=== PATIENT | male | born 1950 | race Caucasian/White ===

== ENCOUNTER → 2016-11-15 | Outpatient (REF) | payer MEDICARE, BC, OTHER | LOC: M SMT 13:16 | PROVIDERS: ATTEND Nurse Practitioner Women's Health | DX: Z12.5 Encounter for screening for malignant neoplasm of prostate (principal) | CPT/HCPCS: 36415; G0103 ==

== ENCOUNTER → 2017-07-18 | Outpatient (CLI) | payer MEDICARE, BC, OTHER ==
--- NOTE | 2017-07-26 20:21 | SLEEPHOME ---
DATE OF PROCEDURE: 07/18/2017 REFERRING PHYSICIAN: Bessie Pierre NP INTERPRETATION: Diagnostic home sleep testing was performed due to concern for the obstructive sleep apnea syndrome. For testing a NOX-T3 respiratory monitoring device was used. Continuous record was made of pulse, oxygen saturation, airflow, chest and abdominal strain and body position. 9 hours and 59 minutes of data were reviewed. Of these, 6 hours and 55 minutes were marked as time in bed. During the interval marked time in bed, there were 27 respiratory events identified of 10 seconds in duration or greater for a respiratory event index of 3.7. The events were primarily obstructive. Baseline pulse rate 55 beats per minute. Pulse rate ranged 41 to 85. Baseline saturation 94%. Lowest oxygen saturation appreciated was 91%. Testing was performed in both the supine and nonsupine positions. Frequency of respiratory events was significantly greater in the supine posture. IMPRESSION: Abnormal home sleep testing with repetitive respiratory events and oxygen desaturations to 91% with a respiratory event index of 3.9 is suggestive of the obstructive sleep apnea syndrome. RECOMMENDATION: Given the association of events with the supine posture, sleep position retraining for avoidance of supine posture should be considered. If sleep symptoms persist, referral for formal in laboratory diagnostic testing would be appropriate as home testing is known to underestimate the severity of disease.
== END ==
LOC: M SLEEP HO 09:17
PROVIDERS: ATTEND Nurse Practitioner Adult Health
DX: G47.33 Obstructive sleep apnea (adult) (pediatric) (principal)

== ENCOUNTER → 2017-11-17 | Outpatient (REF) | payer MEDICARE, BC, OTHER ==
[2017-11-17 20:26] LABS: PSA SCREENING 1.39 NG/ML (< 4.0)
== END ==
LOC: M SMT 19:01
DX: Z12.5 Encounter for screening for malignant neoplasm of prostate (principal)
CPT/HCPCS: G0103

== ENCOUNTER → 2018-11-21 | Outpatient (CLI) | payer MEDICARE, BC, OTHER | LOC: M SMT 08:08 | PROVIDERS: ATTEND Nurse Practitioner Women's Health | DX: Z12.5 Encounter for screening for malignant neoplasm of prostate (principal) | CPT/HCPCS: 36415; G0103 ==

== ENCOUNTER → 2019-06-12 | Outpatient (REF) | payer MEDICARE, OTHER ==
[2019-06-12 13:49] LABS: BASO # 0.1 10^3/uL (0.0-0.2); EOS # 0.2 10^3/uL (0.0-0.5); EOS % 3.3 % (0.0-3.0); HEMATOCRIT 43.2 % (42.0-52.0); LYMPH # 1.3 10^3/uL (1.5-5.0); LYMPH % 24.5 % (24.0-44.0); MEAN CORPUSCULAR HEMOGLOBIN 31.4 pg (27.0-33.0); MEAN CORPUSCULAR HGB CONC 32.4 g/dl (32.0-36.5); MEAN CORPUSCULAR VOLUME 96.9 fl (80.0-96.0); MONO # 0.8 10^3/uL (0.0-0.8); MONO % 15.1 % (0.0-5.0); NEUTROPHILS # 2.9 10^3/uL (1.5-8.5); NEUTROPHILS % 55.7 % (36.0-66.0); PLATELET COUNT, AUTOMATED 218 10^3/uL (150-450); RED BLOOD COUNT 4.46 10^6/uL (4.30-6.10); WHITE BLOOD COUNT 5.2 10^3/uL (4.0-10.0)
[2019-06-12 14:00] LABS: ALBUMIN 3.9 GM/DL (3.2-5.2); ALT/SGPT 33 U/L (12-78); BILIRUBIN,TOTAL 0.5 MG/DL (0.2-1.0); BLOOD UREA NITROGEN 19 MG/DL (7-18); CALCIUM LEVEL 8.7 MG/DL (8.8-10.2); CARBON DIOXIDE LEVEL 30 MEQ/L (21-32); CHLORIDE LEVEL 107 MEQ/L (98-107); CHOLESTEROL LEVEL 150 MG/DL (<200); CREATININE FOR GFR 1.06 MG/DL (0.70-1.30); FREE T4 0.91 NG/DL (0.76-1.46); GLOMERULAR FILTRATION RATE > 60.0 (>49); GLUCOSE, FASTING 95 MG/DL (70-100); HDL CHOLESTEROL 53 MG/DL (>40); LDL CHOLESTEROL 78 MG/DL (<100); NON-HDL-C 97 MG/DL; POTASSIUM SERUM 4.1 MEQ/L (3.5-5.1); SODIUM LEVEL 142 MEQ/L (136-145); TRIGLYCERIDES LEVEL 93 MG/DL (<150)
[2019-06-12 14:17] LABS: HEMOGLOBIN A1c 5.5 %
== END ==
LOC: M LABDRWAD 12:31
PROVIDERS: ATTEND Nurse Practitioner Adult Health
DX: E03.9 Hypothyroidism, unspecified (principal); E78.2 Mixed hyperlipidemia; E11.65 Type 2 diabetes mellitus with hyperglycemia

== ENCOUNTER → 2019-06-26 | Outpatient (REF) | payer MEDICARE, OTHER ==
[2019-06-26 13:19] LABS: APPEARANCE, URINE CLEAR (CLEAR); BACTERIA, URINE AUTO NEGATIVE (NEGATIVE); BILIRUBIN, URINE AUTO NEGATIVE (NEGATIVE); BLOOD, URINE BLOOD NEGATIVE (NEGATIVE); COLOR, URINE YELLOW (YELLOW); GLUCOSE, URINE (UA) AUTO NEGATIVE (NEGATIVE); KETONE, URINE AUTO NEGATIVE (NEGATIVE); LEUKOCYTE ESTERASE, URINE AUTO NEGATIVE (NEGATIVE); NITRITE, URINE AUTO NEGATIVE (NEGATIVE); PROTEIN, URINE AUTO NEGATIVE (NEGATIVE); RBC, URINE AUTO 2 /HPF (0-3); SPECIFIC GRAVITY URINE AUTO 1.009 (1.002-1.035); SQUAMOUS EPITHELIAL CELL UR AU 0 /HPF (0-6); UROBILINOGEN, URINE AUTO 0.2 mg/dL (0.0-2.0); WBC, URINE AUTO 1 /HPF (0-3)
== END ==
LOC: M SMT 13:07
PROVIDERS: ATTEND Nurse Practitioner Women's Health
DX: R10.9 Unspecified abdominal pain (principal)

== ENCOUNTER → 2019-06-26 | Outpatient (CLI) | payer MEDICARE, BC, OTHER ==
--- NOTE | 2019-06-26 12:55 | REP ---
CT ABDOMEN AND PELVIS WITHOUT CONTRAST: CT abdomen and pelvis performed without oral or IV contrast. Sagittal and coronal reconstruction images are performed. There is mild bibasilar fibroatelectatic change in the visualized lung bases. Calcified lymph node is seen in the visualized right hilum. Two hypodense nodules in the liver, one in the left lobe and one in the right lobe, are stable compared to the prior CT of the chest 06/09/2017 from [facility]. The gallbladder is grossly unremarkable. Spleen, adrenals, and pancreas are grossly unremarkable. No right renal calculus or hydronephrosis is seen. There are two punctate calcifications in the mid and lower left renal collecting system. There is mild left hydroureteronephrosis. This is caused by a 6 mm calculus in the left ureter at the level of the L4 vertebral body. No bladder calculus is seen. There is no abdominal aortic aneurysm. There is no adenopathy. There is no free air or free fluid. There is no bowel wall thickening. The appendix is normal. I see no pelvic mass. IMPRESSION: There is a 6 mm calculus in the left ureter at the level of the L4 vertebral body causing mild left hydroureteronephrosis. Two punctate calcifications are seen in the left pelvicalyceal region. Two stable benign appearing hypodense nodules in the liver with no change since prior CT of 06/09/2017. Electronically Signed by Tony Chavarria MD 06/27/2019 10:13 A
== END ==
LOC: M RAD 12:02
PROVIDERS: ATTEND Nurse Practitioner Women's Health
DX: N20.1 Calculus of ureter (principal); R10.9 Unspecified abdominal pain; Z87.442 Personal history of urinary calculi
CPT/HCPCS: 74176; 81001; 87086; G0463

== ENCOUNTER → 2019-07-03 | Outpatient (CLI) | payer MEDICARE, OTHER ==
--- NOTE | 2019-07-03 09:17 | REP ---
Supine abdomen single AP view: Comparison is the abdomen/pelvis CT dated 06/26/2019. There is a faintly visible calcification projected over the L4 left transverse process. This is similar to the comparison CT. There is a phlebolith inferiorly in the pelvis on the left, also identified on the comparison CT. There are no other calcifications. The bowel gas pattern is normal. There is degenerative disc disease throughout the lumbar spine. Impression: Faintly visible calcifications projected over the L4 left transverse process. Phlebolith in the pelvis on the left. Electronically Signed by Tony Hope MD 07/03/2019 09:09 A
== END ==
LOC: M SMT 08:34
PROVIDERS: ATTEND Nurse Practitioner Women's Health
DX: N13.2 Hydronephrosis with renal and ureteral calculous obstruction (principal); I87.8 Other specified disorders of veins; M51.36 Other intervertebral disc degeneration, lumbar region
CPT/HCPCS: 74018; G0463

== ENCOUNTER → 2019-07-23 | Outpatient (REF) | payer MEDICARE, OTHER ==
[~2019-07-23] MED LIST: ASPI81TA85 PO; ATOR1TAB21 PO; BIMA01SOL OU; CHOL100029 PO; DORZ2SOL5 OU; FLOM0.4C39 PO; GLUC1TAB58 PO; OXYC1TAB23 PO; VALS160T PO
== END ==
LOC: M LABDRWAD 16:23
PROVIDERS: ATTEND Nurse Practitioner Adult Health
DX: Z01.812 Encounter for preprocedural laboratory examination (principal); N13.2 Hydronephrosis with renal and ureteral calculous obstruction

== ENCOUNTER 2019-07-31 05:45 | Day surgery (SDC) | payer MEDICARE, BC, OTHER ==
[~2019-07-31] VITALS: Ht 177.8 cm; Wt 91.6 kg
[2019-07-31] MEDS ORDERED: LIDOCAINE 1% MDV 20ML VIAL SQ PRN (06:00)
[2019-07-31] MEDS ORDERED: LR 1,000 ML IV ONE (06:00)
[2019-07-31] MEDS ORDERED: ceFAZolin SOD 2 GM in IV 1 EA IV ONE (06:00)
[2019-07-31] MEDS ORDERED: CONRAY-60 60% 50ML VIAL (Q9961) As Ordered ONE (06:55)
[2019-07-31] MEDS ORDERED: LIDOCAINE 2% INJ 100 MG/5 ML SDV (FOR ANES.) As Ordered ONE (07:14)
[2019-07-31] MEDS ORDERED: PROPOFOL 200 MG/20 ML VIAL As Ordered ONE (07:14)
[2019-07-31] MEDS ORDERED: dexameTHASONE 4 MG/ML 1ML VIAL (J1100) As Ordered ONE (07:15)
[2019-07-31] MEDS ORDERED: fentaNYL 100 MCG/2 ML INJECTION (J3010) As Ordered ONE ×2 (07:15→09:46)
[2019-07-31] MEDS ORDERED: ONDANSETRON 4MG/2ML VIAL (J2405) As Ordered ONE ×2 (07:15→10:48)
[2019-07-31] MEDS ORDERED: MIDAZOLAM INJ 2 MG/2 ML VIAL (J2250) As Ordered ONE (07:15)
[2019-07-31] MEDS ORDERED: ACETAMINOPHEN 1000MG 100ML IV BTL (OFIRMEV) (J0131 PER 10MG) As Ordered ONE (09:08)
[2019-07-31] MEDS ORDERED: OXYB5TAB2 PO (10:54)
[2019-07-31] MEDS ORDERED: BACT800T5 PO (10:54)
[2019-07-31] MEDS ORDERED: LR 1,000 ML IV SCH (11:00)
[2019-07-31] MEDS ORDERED: ONDANSETRON 4MG/2ML VIAL (J2405) IV PRN (11:00)
[2019-07-31] MEDS: fentaNYL 100 MCG/2 ML INJECTION (J3010) IV PRN ×4 (11:08→11:30)
[2019-07-31] MEDS: oxyCODONE 5MG TAB PO PRN ×2 (11:10→12:56)
[2019-07-31] MEDS ORDERED: oxyCODONE 5MG TAB As Ordered ONE ×2 (11:10→12:56)
--- NOTE | 2019-07-31 11:28 | RO ---
DATE OF PROCEDURE: 07/31/2019 PREPROCEDURE DIAGNOSIS: Left passed ureteral stone. POSTPROCEDURE DIAGNOSIS: Left passed ureteral stone. PROCEDURE: Left ureteroscopic stone extraction with laser lithotripsy of stones and stent placement. SURGEON: Dr. Wisam Pollock BAG MACHINE SET UP OPERATOR: ANESTHESIA: General. INDICATION: This pleasant 69-year-old man has been trying unsuccessfully to pass the stone for the last several weeks. He has had only mild pain. The stone was located at L4 and measured about 4-5 mm and has failed to progress. DESCRIPTION OF PROCEDURE: After obtaining informed consent from the patient, he was taken to the operating room where after sufficient anesthetic, he was prepped and draped in the usual manner. A 22-Mauritian diagnostic cystoscope was advanced to the bladder and the bladder inspected. No mucosal lesions seen. A wire was negotiated past the stone to the kidney under fluoroscopic control. Ureteral orifices were in orthotopic location draining clear urine. A retrograde ureteral pyelogram was performed by instilling iodinated contrast and the left side of this demonstrated a filling defect in that area of L4 consistent with the previously noted faint urinary stone. A hydrophilic Glidewire was advanced passed the stone of the kidney under fluoroscopic control. The fluoroscopy ureteroscope was advanced without requirement of dilation at the ureteral orifice to the stone. We then used the 200 micron holmium laser to fragment the stone using both high and low power settings. A portion of the stone moving back to the kidney where it was trapped in the zak and thoroughly fragmented. Using a 1.9 Mauritian basket, we were able to grasp a collection of fragments and to remove them. This included all significant remaining stone after inspection of all calices. There was noted to be moderate induration at the point of the stone impaction and for this reason we felt that an indwelling stent was indicated. At this time we re-passed the safety Glidewire and positioned a 5-[place]itian stent in this area using a [place] type stent. T eh string was left attached, the bladder emptied, and the patient to recovery in satisfactory condition. Fluoroscopic imaging confirmed stent placement. DISPOSITION: Dismissed home on diet as tolerated. Activity light. Medication: Septra DS one by mouth twice a day, oxybutynin ER 5 mg daily. The patient has OxyContin at home for as needed pain control. Followup to be in 10-14 days for cystoscopy and stent removal in t office. MTDD
[2019-07-31] MEDS: MORPHINE 10 MG/ML 1ML VIAL (J2270) IV PRN ×3 (11:36→12:32)
[2019-07-31] MEDS ORDERED: oxyBUTYnin 5 MG TAB PO ONE (12:00)
[2019-07-31] MEDS ORDERED: KETOROLAC 30 MG/ML VIAL (J1885) As Ordered ONE (13:10)
[2019-07-31] MEDS ORDERED: KETOROLAC 30 MG/ML VIAL (J1885) IV ONE (13:45)
[2019-07-31 15:00] VITALS: BP 149/67
--- NOTE | 2019-07-31 15:28 | REP ---
C-ARM VIEWS DURING LEFT URETERAL STENT PLACEMENT WITH RETROGRADE PYELOGRAM: Two C-arm views are performed. The first image shows contrast within a normal-appearing left ureter with no stricture or filling defect identified. The left renal pelvis is not dilated and demonstrates no filling defect. The calices are not well opacified. A left ureteral stent is placed. The proximal end is coiled in the region of the left pelvicaliceal system. The distal end is coiled in the region of the urinary bladder. 26 seconds fluoroscopy time utilized. Electronically Signed by Tony Chavarria MD 08/01/2019 12:26 P
== END 2019-07-31 15:40 | disposition home or self-care (01) ==
LOC: M SDC 05:45
PROVIDERS: ATTEND Urology
DX: N20.1 Calculus of ureter (principal); I10 Essential (primary) hypertension; E78.00 Pure hypercholesterolemia, unspecified; E55.9 Vitamin D deficiency, unspecified; I83.93 Asymptomatic varicose veins of bilateral lower extremities; H40.9 Unspecified glaucoma; R94.5 Abnormal results of liver function studies; R06.83 Snoring; Z79.899 Other long term (current) drug therapy; Z79.82 Long term (current) use of aspirin
CPT/HCPCS: 52356; 74420; 82360; 88300; C1769; C2617; J0131; J0690; J1100; J1885; J2250; J2270; J2405; J3010; Q9961

== ENCOUNTER → 2019-08-27 | Outpatient (REF) | payer MEDICARE, OTHER ==
[~2019-08-27] MED LIST changes: +BACT800T5 PO; +OXYB5TAB2 PO
== END ==
LOC: M LAB REF 10:11
PROVIDERS: ATTEND Nurse Practitioner Adult Health
DX: R10.10 Upper abdominal pain, unspecified (principal); R11.0 Nausea; R63.4 Abnormal weight loss

== ENCOUNTER → 2019-11-28 | Outpatient (CLI) | payer MEDICARE, OTHER ==
[~2019-11-28] MED LIST changes: +OXYB-54 PO; -OXYB5TAB2 PO; -VALS160T PO; +VALS160T2 PO
== END ==
LOC: M PLALAB 08:59
PROVIDERS: ATTEND Nurse Practitioner Women's Health
DX: Z12.5 Encounter for screening for malignant neoplasm of prostate (principal)
CPT/HCPCS: 36415; G0103

== ENCOUNTER → 2020-11-24 | Outpatient (REF) | payer MEDICARE, OTHER ==
[~2020-11-24] MED LIST changes: -ASPI81TA85 PO; +ASPI81TA86 PO
== END ==
LOC: M SFHCADAM 10:21
PROVIDERS: ATTEND Nurse Practitioner Women's Health
DX: Z12.5 Encounter for screening for malignant neoplasm of prostate (principal)

== ENCOUNTER 2021-02-09 10:47 | Emergency (ER) | payer MEDICARE, OTHER ==
[~2021-02-09] VITALS: Ht 177.8 cm; Wt 95.9 kg
[2021-02-09 12:17] LABS: BASO # 0.1 10^3/uL (0.0-0.2); BASO % 0.5 % (0.0-1.0); EOS # 0.1 10^3/uL (0.0-0.5); EOS % 0.9 % (0.0-3.0); HEMATOCRIT 39.3 % (42.0-52.0); LYMPH # 1.1 10^3/uL (1.5-5.0); LYMPH % 10.5 % (24.0-44.0); MEAN CORPUSCULAR HEMOGLOBIN 31.2 pg (27.0-33.0); MEAN CORPUSCULAR HGB CONC 33.1 g/dl (32.0-36.5); MEAN CORPUSCULAR VOLUME 94.2 fl (80.0-96.0); MONO # 1.1 10^3/uL (0.0-0.8); MONO % 10.3 % (2.0-8.0); NEUTROPHILS % 77.5 % (36.0-66.0); PLATELET COUNT, AUTOMATED 235 10^3/uL (150-450); RED BLOOD COUNT 4.17 10^6/uL (4.30-6.10); WHITE BLOOD COUNT 10.3 10^3/uL (4.0-10.0)
--- NOTE | 2021-02-09 12:25 | REP ---
INDICATION: severe swelling, limited rom, no known injury COMPARISON: None. TECHNIQUE: Four views left wrist. FINDINGS: There is no evidence of acute fracture, dislocation, or intrinsic bone disease.The joint spaces are unremarkable. IMPRESSION: Negative left wrist series. <Electronically signed by Tony Chavarria > 02/09/21 0021
--- NOTE | 2021-02-09 12:26 | REP ---
INDICATION: severe swelling, limited rom, no known injury COMPARISON: None. TECHNIQUE: Four views left hand. FINDINGS: There is no evidence of acute fracture, dislocation, or intrinsic bone disease.Joint spaces are unremarkable. IMPRESSION: Negative left hand series. <Electronically signed by Tony Chavarria > 02/09/21 [id number]
[2021-02-09 12:28] LABS: INR 1.08; PARTIAL THROMBOPLASTIN TIME 27.3 SECONDS (24.2-38.5); PROTHROMBIN TIME 14.2 SECONDS (12.5-14.3)
[2021-02-09] MEDS ORDERED: ceFAZolin SOD 2 GM in IV 1 EA IV ONE (12:30)
[2021-02-09 12:39] LABS: ALBUMIN 3.7 GM/DL (3.2-5.2); BILIRUBIN,DIRECT 0.2 MG/DL (0.0-0.2); BILIRUBIN,TOTAL 0.5 MG/DL (0.2-1.0); C REACTIVE PROTEIN QUANTITATIV 8.9 MG/DL (0.00-0.30); CALCIUM LEVEL 9.6 MG/DL (8.8-10.2); CREATININE FOR GFR 1.54 MG/DL (0.70-1.30); GLOMERULAR FILTRATION RATE 47.9 (>49); POTASSIUM SERUM 3.8 MEQ/L (3.5-5.1); TOTAL PROTEIN 7.7 GM/DL (6.4-8.2)
[2021-02-09 12:51] LABS: ERYTHROCYTE SEDIMENTATION RATE 54 mm/hr (0-20)
[2021-02-09] MEDS ORDERED: NS 500 ML IV ONE (13:00)
[2021-02-09] MEDS ORDERED: MORPHINE 2 MG/ML 1ML VIAL (J2270) IV ONE (13:00)
[2021-02-09] MEDS ORDERED: ONDANSETRON 4MG/2ML VIAL IV ONE (13:00)
--- NOTE | 2021-02-09 13:07 | REP ---
INDICATION: swelling, numbness tingling COMPARISON: None. TECHNIQUE: Real time compression and duplex Doppler evaluation of the Left upper extremity deep venous system is performed. FINDINGS: The Left subclavian, jugular, axillary, brachial, basilic and cephalic veins are fully compressible where accessible with transducer pressure, and demonstrate no intraluminal thrombus and normal venous waveforms. There is no evidence of deep venous thrombosis. IMPRESSION: No evidence of deep venous thrombosis of the Left upper extremity deep vein system. <Electronically signed by Tony Chavarria > 02/09/21 [id number]
[2021-02-09 13:23] VITALS: BP 172/80
[2021-02-09] MEDS ORDERED: VALSARTAN 80 MG TAB (DIOVAN) PO ONE (13:25)
[2021-02-09] MEDS ORDERED: hydroCHLOROthiazide 12.5 MG CAPSULE PO ONE (13:25)
[2021-02-09 14:09] VITALS: BP 178/82
[2021-02-09] MEDS ORDERED: HYDR-3713 PO (14:18)
== END 2021-02-09 14:20 | disposition home or self-care (01) ==
LOC: M ED 10:47
DX: L03.114 Cellulitis of left upper limb (principal); N17.9 Acute kidney failure, unspecified; I10 Essential (primary) hypertension; E78.5 Hyperlipidemia, unspecified; G56.00 Carpal tunnel syndrome, unspecified upper limb; Z79.82 Long term (current) use of aspirin; Z79.899 Other long term (current) drug therapy
CPT/HCPCS: 73110; 73130; 80048; 80076; 83605; 85025; 85610; 85652; 85730; 86140; 87040; 93971; 99284; J0690; J2270; J2405

== ENCOUNTER → 2021-07-03 | Outpatient (CLI) | payer MEDICARE, BC, OTHER ==
[~2021-07-03] MED LIST changes: +HYDR-3713 PO
--- NOTE | 2021-07-03 13:31 | REP ---
INDICATION: MASS OF LT ARM, LT ANKLE SWELLING PT NEEDS XRAY AFTER US. COMPARISON: None. TECHNIQUE: Real-time sonographic evaluation of left antecubital fossa soft tissues performed at the site of a palpable abnormality. FINDINGS: No cystic or solid mass is seen. No fluid collection is seen. IMPRESSION: No cystic or solid mass, and no fluid collection, seen in the left antecubital soft tissues. <Electronically signed by Tony Chavarria > 07/03/21 [id number]
--- NOTE | 2021-07-03 13:35 | REP ---
INDICATION: LT ANKLE MASS X 2. COMPARISON: None. TECHNIQUE: Real-time sonographic evaluation of left ankle and foot performed in the region of the 2 palpable lumps. FINDINGS: At the site of each palpable abnormality in the region of the left ankle and foot, a complex cystic and solid structure seen. These likely communicate. Maximum length is approximately 9.2 cm and approximate maximum transverse diameter is 1.6 cm. IMPRESSION: Complex cystic and solid structure in the region of the 2 palpable lumps in the left ankle and foot. These appear to communicate. This could represent a complex tenosynovitis or ganglion cyst. Cystic neoplasm is not excluded. Further evaluation may be made with MRI with and without contrast. <Electronically signed by Tony Chavarria > 07/03/21 [id number]
--- NOTE | 2021-07-03 13:51 | REP ---
INDICATION: MASS OF LT ARM, LT ANKLE SWELLING PT HAS US FIRST. COMPARISON: None. TECHNIQUE: AP and lateral views FINDINGS: AP and lateral view show no evidence of an acute osseous abnormality. IMPRESSION: No acute osseous abnormalities identified on this limited AP and lateral view exam. If a soft tissue mass is of clinical concern then pre and post gadolinium enhanced MRI is recommended. <Electronically signed by Jorge Barragan > 07/03/21 [id number]
== END ==
LOC: M RAD 12:11
PROVIDERS: ATTEND Nurse Practitioner Family
DX: R22.42 Localized swelling, mass and lump, left lower limb (principal); R22.32 Localized swelling, mass and lump, left upper limb

== ENCOUNTER → 2021-08-10 | Outpatient (CLI) | payer MEDICARE, BC, OTHER ==
--- NOTE | 2021-08-10 10:48 | REP ---
INDICATION: ATHERO RENAL ARTERY, CKD 3B. COMPARISON: CT with 08/28/2019, CT without 06/26/2019 TECHNIQUE: Standard renal sonography with arterial Doppler. FINDINGS: Right kidney: It measures 10.5 x 6.5 x 5.6 cm. Its cortical echogenicity is the upper range of normal and there is some mild sinus lipomatosis with increased sinus fat there is no hydronephrosis. There are 2 small cystic areas in the lower pole at 5 and 4 mm. The left kidney is 9.7 x 4 x 4.2 cm with hyperechoic cortical echogenicity. There is moderate hydronephrosis. Cortex appears thinned since the previous study. The bladder is only minimally distended. The prostate seen measures 4.8 x 5.1 x 3.8 cm giving calculated prostate volume 49 cc. Right renal Doppler: Kidney length 10.5 cm. Peak renal artery velocity 97 cm/S Peak aortic velocity 84 cm/S Renal aortic ratio 1.15 Resistive index: Upper 0.76, mid 0.78, lower 0.75 Acceleration time: Upper 0.034, mid 0.044, lower 0.038 sec Left renal Doppler: Kidney length 9.7 cm. Left renal artery velocity: No flow identified. IMPRESSION: 1. Interval left atrophy has developed since CTs in 2019 and no Doppler tracing or color flow seen in the left renal artery. This is suspicious for poor to no function on the left. 2. There is no direct or indirect evidence for any significant renal artery stenosis on the right. 3. Consideration for nuclear renal scan is warranted. <Electronically signed by Marc Isaac > 08/10/21 [id number]
== END ==
LOC: M RAD 07:22
PROVIDERS: ATTEND Internal Medicine Nephrology
DX: N18.32 Chronic kidney disease, stage 3b (principal); I70.1 Atherosclerosis of renal artery

== ENCOUNTER → 2021-08-20 | Outpatient (CLI) | payer MEDICARE, BC, OTHER ==
--- NOTE | 2021-08-20 14:57 | REP ---
INDICATION: CKD 3B. COMPARISON: Previous renal ultrasound obtained 08/10/2021 showed left renal atrophy and no Doppler evidence of left renal arterial blood flow. TECHNIQUE/RADIOTRACER AND DOSE: After the intravenous administration of 8.8 mCi of technetium 99 M Mag 3 a renal flow in scan was obtained. FINDINGS: The flow portion of the examination shows prompt visualization of the right kidney and an absence of left renal visualization. The dynamic renal scintiscan shows good visual washout characteristics of the right kidney and an absence of activity from the left kidney. Pre and postvoid scintigraphy shows decreased activity in the right kidney on the postvoid image and there is no activity coming from the left kidney. Functional renogram curves show the time to peak activity for the right kidney 2 minutes and a T1/2 of 10 minutes. 100% of the counts are coming from the right kidney. There is no functional renogram curve for the left kidney. IMPRESSION: 1. The right kidney is functioning normally. 2. There is no evidence of left renal function. <Electronically signed by Jorge Barragan > 08/20/21 [id number]
== END ==
LOC: M RAD 12:41
PROVIDERS: ATTEND Internal Medicine Nephrology
DX: N18.30 Chronic kidney disease, stage 3 unspecified (principal)
CPT/HCPCS: 78707; A9562

== ENCOUNTER → 2021-11-27 | Outpatient (CLI) | payer MEDICARE, BC, OTHER | LOC: M PLALAB 10:43 | PROVIDERS: ATTEND Nurse Practitioner Women's Health | DX: Z12.5 Encounter for screening for malignant neoplasm of prostate (principal) | CPT/HCPCS: 36415; G0103 ==

== ENCOUNTER → 2022-03-09 | Outpatient (CLI) | payer MEDICARE, BC, OTHER ==
[~2022-03-09] MED LIST changes: +ASPI81TA26 PO; +CYCL5TAB PO; +D3 H10002 PO; +POTA10808 PO; +PRED20TA PO; +VALS160T3 PO
== END ==
LOC: M WUC 13:05
DX: R07.9 Chest pain, unspecified (principal); M25.512 Pain in left shoulder; R91.8 Other nonspecific abnormal finding of lung field; M19.012 Primary osteoarthritis, left shoulder

== ENCOUNTER → 2022-03-22 | Outpatient (CLI) | payer MEDICARE, BC, OTHER | LOC: M LABSMTC 09:06 | PROVIDERS: ATTEND Anesthesiology | DX: Z01.812 Encounter for preprocedural laboratory examination (principal); Z20.822 Contact with and (suspected) exposure to COVID-19 ==

== ENCOUNTER 2022-03-25 09:22 | Day surgery (SDC) | payer MEDICARE, BC, OTHER ==
[~2022-03-25] VITALS: Ht 177.8 cm; Wt 91.5 kg
[~2022-03-25 09:22] MED LIST changes: +NS 1,000 ML IV ONE
[2022-03-25] MEDS ORDERED: propofoL 200 MG/20 ML VIAL As Ordered ONE (09:24)
[2022-03-25] MEDS ORDERED: LIDOCAINE 2% 100MG/5ML SDV (FOR ANES.) As Ordered ONE (09:24)
[2022-03-25 11:04] VITALS: BP 118/72
== END 2022-03-25 11:16 | disposition home or self-care (01) ==
LOC: M OPP 09:22
PROVIDERS: ATTEND Surgery
DX: Z12.11 Encounter for screening for malignant neoplasm of colon (principal); K63.5 Polyp of colon; I10 Essential (primary) hypertension; E11.9 Type 2 diabetes mellitus without complications; Z79.02 Long term (current) use of antithrombotics/antiplatelets; Z79.52 Long term (current) use of systemic steroids; Z79.82 Long term (current) use of aspirin; Z79.899 Other long term (current) drug therapy; Z87.442 Personal history of urinary calculi

== ENCOUNTER → 2022-11-29 | Outpatient (CLI) | payer MEDICARE, BC, OTHER ==
[~2022-11-29] MED LIST changes: -NS 1,000 ML IV ONE
== END ==
LOC: M PLALAB 09:14
PROVIDERS: ATTEND Nurse Practitioner Women's Health
DX: Z12.5 Encounter for screening for malignant neoplasm of prostate (principal)
CPT/HCPCS: 36415; G0103

== ENCOUNTER 2023-03-22 03:34 | Emergency (ER) | payer MEDICARE, BC, OTHER ==
[~2023-03-22] VITALS: Ht 177.8 cm; Wt 99.1 kg
[2023-03-22] MEDS ORDERED: traMADol 50 MG TAB PO ONE (10:40)
[2023-03-22] MEDS ORDERED: ACETAMINOPHEN 325 MG TAB PO ONE (10:40)
[2023-03-22 11:49] VITALS: BP 166/84; TEMP 98.3; O2SAT 96
[2023-03-22] MEDS ORDERED: TRAM50TA2 PO (11:50)
[2023-03-22] MEDS ORDERED: METH-1164 PO (11:50)
== END 2023-03-22 11:58 | disposition home or self-care (01) ==
LOC: M ED 03:34
DX: M51.36 Other intervertebral disc degeneration, lumbar region (principal); M43.6 Torticollis; I10 Essential (primary) hypertension; Z79.82 Long term (current) use of aspirin; Z79.899 Other long term (current) drug therapy

== ENCOUNTER → 2023-12-02 | Outpatient (CLI) | payer MEDICARE, BC, OTHER ==
[~2023-12-02] MED LIST changes: +METH-1164 PO; +TRAM50TA2 PO
== END ==
LOC: M PLALAB 09:21
PROVIDERS: ATTEND Nurse Practitioner Women's Health
DX: Z12.5 Encounter for screening for malignant neoplasm of prostate (principal)
CPT/HCPCS: 36415; G0103

== ENCOUNTER → 2024-11-29 | Outpatient (REF) | payer MEDICARE, BC ==
[~2024-11-29] MED LIST changes: -CYCL5TAB PO; +CYCL5TAB4 PO; -POTA10808 PO; +POTA10809 PO
== END ==
LOC: M SFHCADAM 07:20
PROVIDERS: ATTEND Urology
DX: Z12.5 Encounter for screening for malignant neoplasm of prostate (principal)

== ENCOUNTER → 2025-02-05 | Outpatient (CLI) | payer MEDICARE, BC ==
[~2025-02-05] MED LIST changes: -FLOM0.4C39 PO; +TAMS-18 PO
[2025-02-05 13:32] LABS: HEMATOCRIT 42.2 % (42.0-52.0); MEAN CORPUSCULAR HEMOGLOBIN 31.5 pg (27.0-33.0); MEAN CORPUSCULAR HGB CONC 33.2 g/dl (32.0-36.5); PLATELET COUNT, AUTOMATED 231 10^3/uL (150-450); RED BLOOD COUNT 4.44 10^6/uL (4.30-6.10); WHITE BLOOD COUNT 6.6 10^3/uL (4.0-10.0)
[2025-02-05 13:37] LABS: ERYTHROCYTE SEDIMENTATION RATE 27 mm/hr (0-20)
[2025-02-05 13:47] LABS: HEMOGLOBIN A1c 5.4 % (4.0-6.0)
[2025-02-05 14:22] LABS: C REACTIVE PROTEIN QUANTITATIV < 0.50 MG/DL (<1.0)
[2025-02-05 14:24] LABS: ALBUMIN 3.9 G/DL (3.2-5.2); ALKALINE PHOSPHATASE 75 U/L (40-129); ALT/SGPT 18 U/L (7.0-40); AST/SGOT 23 U/L (<34); BILIRUBIN,TOTAL 0.4 MG/DL (0.3-1.2); BLOOD UREA NITROGEN 24 MG/DL (9-23); CALCIUM LEVEL 9.7 MG/DL (8.3-10.6); CARBON DIOXIDE LEVEL 28 MMOL/L (20-31); CHLORIDE LEVEL 106 MMOL/L (98-107); CHOLESTEROL LEVEL 139 MG/DL (<200); CHOLESTEROL RISK RATIO 2.87 (<5); GLOMERULAR FILTRATION RATE 53.1 (>42); GLUCOSE, FASTING 105 MG/DL (74-106); HDL CHOLESTEROL 48.3 MG/DL (>40); IRON (FE) 58 UG/DL (65-175); LDL CHOLESTEROL 78.5 MG/DL (<100); MAGNESIUM LEVEL 1.8 MG/DL (1.8-2.4); NON-HDL-C 90.7 MG/DL; POTASSIUM SERUM 4.1 MMOL/L (3.5-5.1); SODIUM LEVEL 144 MMOL/L (136-145); TOTAL PROTEIN 7.2 G/DL (5.7-8.2); TRIGLYCERIDES LEVEL 61 MG/DL (<150)
[2025-02-05 14:27] LABS: FREE T4 1.14 NG/DL (0.89-1.76)
[2025-02-05 14:28] LABS: FERRITIN 69.4 NG/ML (10.5-307.3); TOTAL 25(OH) VITAMIN D 42.2 NG/ML (20.0-100.0)
== END ==
LOC: M WUC 09:27
PROVIDERS: ATTEND Registered Nurse
DX: I12.9 Hypertensive chronic kidney disease with stage 1 through stage 4 chronic kidney disease, or unspecified chronic kidney disease (principal); E78.2 Mixed hyperlipidemia; R73.03 Prediabetes; E55.9 Vitamin D deficiency, unspecified; R42 Dizziness and giddiness; R07.89 Other chest pain; D50.9 Iron deficiency anemia, unspecified

== ENCOUNTER → 2025-02-21 | Outpatient (CLI) | payer MEDICARE, BC ==
[~2025-02-21] MED LIST changes: +ISOVUE-370 76% 100ML VIAL As Ordered ONE
== END ==
LOC: M RAD 07:56
PROVIDERS: ATTEND Registered Nurse
DX: R42 Dizziness and giddiness (principal)
CPT/HCPCS: 70496; 70498; Q9967

== ENCOUNTER → 2025-02-26 | Outpatient (CLI) | payer MEDICARE, BC ==
[~2025-02-26] MED LIST changes: -ISOVUE-370 76% 100ML VIAL As Ordered ONE
== END ==
LOC: M EKG 09:29
PROVIDERS: ATTEND Internal Medicine Cardiovascular Disease
DX: R00.0 Tachycardia, unspecified (principal); R42 Dizziness and giddiness

== ENCOUNTER → 2025-02-26 | Outpatient (CLI) | payer MEDICARE, BC ==
[2025-02-27 13:57] LABS: PSA FREE 1.1 ng/mL; PSA TOTAL 5.8 ng/mL (< OR = 4.0)
== END ==
LOC: M WUC 10:11
PROVIDERS: ATTEND Urology
DX: R97.20 Elevated prostate specific antigen [PSA] (principal)

== ENCOUNTER → 2025-02-28 | Outpatient (CLI) | payer MEDICARE, BC | LOC: M CARPUL 10:36 | PROVIDERS: ATTEND Internal Medicine Cardiovascular Disease | DX: R07.9 Chest pain, unspecified (principal); R06.02 Shortness of breath; R94.31 Abnormal electrocardiogram [ECG] [EKG] ==

== ENCOUNTER → 2025-05-03 | Outpatient (CLI) | payer MEDICARE, BC | LOC: M SLEEP HO 04-22 11:01 | PROVIDERS: ATTEND Internal Medicine Cardiovascular Disease | DX: G47.33 Obstructive sleep apnea (adult) (pediatric) (principal) ==

== ENCOUNTER → 2025-05-23 | Outpatient (CLI) | payer MEDICARE, BC ==
[2025-05-23 12:24] LABS: PLATELET COUNT, AUTOMATED 217 10^3/uL (150-450)
[2025-05-23 12:30] LABS: CALCIUM LEVEL 9.1 MG/DL (8.3-10.6); CARBON DIOXIDE LEVEL 31.0 MMOL/L (20-31); CHLORIDE LEVEL 104.0 MMOL/L (98-107); CREATININE FOR GFR 1.41 MG/DL (0.70-1.30); GLOMERULAR FILTRATION RATE 52.6 (>42); POTASSIUM SERUM 4.4 MMOL/L (3.5-5.1); SODIUM LEVEL 144.0 MMOL/L (136-145)
[2025-05-23 12:39] LABS: INR 0.93
== END ==
LOC: M WUC 08:14
PROVIDERS: ATTEND Urology
DX: Z01.818 Encounter for other preprocedural examination (principal); C61 Malignant neoplasm of prostate

== ENCOUNTER → 2025-06-04 | Outpatient (REF) | payer MEDICARE, BC ==
[~2025-06-04] MED LIST changes: +AMLO1TAB24 PO; +CIPR-249 PO; +COLA100C5 PO; +FERR325T3 PO; +MED REC COMMENT; +PERCOCET PO; +VALS320T3 PO
== END ==
LOC: M LABWUC 11:57
PROVIDERS: ATTEND Urology
DX: Z01.818 Encounter for other preprocedural examination (principal); C61 Malignant neoplasm of prostate; N39.0 Urinary tract infection, site not specified

== ENCOUNTER 2025-06-12 10:55 | Day surgery (SDC) | payer MEDICARE, BC ==
[2025-06-12] VITALS (7 sets, daily range): BP systolic 130–141; BP diastolic 67–73; TEMP 97.2–97.6; O2SAT 95–98
[~2025-06-12] VITALS: Ht 177.8 cm; Wt 97.0 kg
[2025-06-12] MEDS: LR 1,000 ML IV SCH ×2 (10:50→16:35)
[~2025-06-12 10:55] MED LIST changes: -CIPR-249 PO; -COLA100C5 PO; +LIDOCAINE 2% 100 MG/5 ML SDV (FOR ANES.) As Ordered ONE; -MED REC COMMENT; +ONDANSETRON 4MG 2ML VIAL As Ordered ONE; -PERCOCET PO; +ROCURONIUM BROMIDE 50MG/5ML VIAL As Ordered ONE; -VALS320T3 PO; +dexAMETHasone 4 MG/ML 1 ML VIAL As Ordered ONE
[2025-06-12] MEDS ORDERED: MIDAZOLAM INJ 2 MG/2 ML VIAL As Ordered ONE (11:00)
[2025-06-12] MEDS ORDERED: SUGAMMADEX SODIUM 200 MG/2 ML VIAL As Ordered ONE (11:35)
[2025-06-12] MEDS ORDERED: HEPARIN SOD 5000 UNITS/ML 1 ML VIAL/SYRINGE As Ordered ONE (12:06)
[2025-06-12] MEDS: ceFAZolin SOD 2 GM IV ONCE IV ONE ×2 (12:10→19:32)
[2025-06-12] MEDS: HEPARIN SOD 5000 UNITS/ML 1 ML VIAL/SYRINGE SQ ONE (12:10)
[2025-06-12] MEDS ORDERED: ACETAMINOPHEN 1000MG/100ML IV BAG As Ordered ONE (12:37)
[2025-06-12] MEDS ORDERED: HYDROmorphone HCL 2 MG/ML 1 ML VIAL As Ordered ONE (12:47)
[2025-06-12] MEDS ORDERED: ACETAMINOPHEN 325 MG TAB PO PRN (15:00)
[2025-06-12] MEDS ORDERED: dexmedeTOMIDine (4 MCG/ML) 200 MCG/50 ML BTL As Ordered ONE (16:13)
[2025-06-12] MEDS: LIDOCAINE 1% SDV 30 ML VIAL As Ordered ONE (16:18)
[2025-06-12] MEDS ORDERED: HYDROMORPHONE HCL 0.5 MG/0.5 ML SYRINGE IV PRN (16:35)
[2025-06-12] MEDS: ONDANSETRON 4MG 2ML VIAL IV PRN ×2 (17:37→22:08)
[2025-06-12 17:56] LABS: PLATELET COUNT, AUTOMATED 233 10^3/uL (150-450)
[2025-06-12 18:15] LABS: CALCIUM LEVEL 8.8 MG/DL (8.3-10.6); CARBON DIOXIDE LEVEL 23.0 MMOL/L (20-31); CHLORIDE LEVEL 104.0 MMOL/L (98-107); CREATININE FOR GFR 1.69 MG/DL (0.70-1.30); GLOMERULAR FILTRATION RATE 42.3 (>42); POTASSIUM SERUM 3.7 MMOL/L (3.5-5.1); SODIUM LEVEL 141.0 MMOL/L (136-145)
[2025-06-12] MEDS: NS (Normal Saline) 0.9% 1,000 ML IV SCH (18:49)
[2025-06-12] MEDS ORDERED: VALS320T3 PO (19:49)
[2025-06-12] MEDS ORDERED: MED REC COMMENT (19:50)
[2025-06-12] MEDS ORDERED: HOME MED LIST COMPLETE! XX SCH (19:50)
[2025-06-12] MEDS: DOCUSATE SODIUM 100 MG CAPSULE PO SCH (21:02)
[2025-06-12] MEDS: ceFAZolin SOD 1 GM in DEXTROSE 5% (D5W) ADV/MINI-BAG 50 ML IV SCH (21:02)
[2025-06-12] MEDS: ATORVASTATIN 20 MG TAB PO SCH (21:02)
[2025-06-12] MEDS: HEPARIN SOD 5000 UNITS/ML 1 ML VIAL/SYRINGE SC SCH (21:03)
[2025-06-12] MEDS: PERCOCET 5MG/325MG TAB PO PRN (22:07)
[2025-06-13 00:07] VITALS: BP 128/67; TEMP 97; O2SAT 94
[2025-06-13 01:08] VITALS: BP 129/67; TEMP 97.6; O2SAT 92
[2025-06-13 02:08] VITALS: BP 130/69; TEMP 97.6; O2SAT 94
[2025-06-13 03:08] VITALS: BP 135/67; TEMP 97.9; O2SAT 94
[2025-06-13 05:09] VITALS: BP 128/63; TEMP 97.9; O2SAT 95
[2025-06-13] MEDS: PERCOCET 5MG/325MG TAB PO PRN (05:17)
[2025-06-13 07:25] LABS: PLATELET COUNT, AUTOMATED 287 10^3/uL (150-450)
[2025-06-13 08:07] LABS: CALCIUM LEVEL 8.6 MG/DL (8.3-10.6); CARBON DIOXIDE LEVEL 26.0 MMOL/L (20-31); CHLORIDE LEVEL 103.0 MMOL/L (98-107); CREATININE FOR GFR 1.59 MG/DL (0.70-1.30); GLOMERULAR FILTRATION RATE 45.6 (>42); POTASSIUM SERUM 3.8 MMOL/L (3.5-5.1); SODIUM LEVEL 143.0 MMOL/L (136-145)
[2025-06-13] MEDS: DORZOLAMIDE/TIMOLOL 10 ML OPHTHALMIC SOLN OU SCH (09:00)
[2025-06-13] MEDS: hydroCHLOROthiazide 25 MG TAB PO SCH (09:08)
[2025-06-13] MEDS: amLODIPine 5 MG TAB PO SCH (09:08)
[2025-06-13] MEDS: VALSARTAN 80MG TAB PO SCH (09:14)
[2025-06-13] MEDS ORDERED: PERCOCET PO (10:28)
[2025-06-13] MEDS ORDERED: COLA100C5 PO (10:28)
[2025-06-13] MEDS ORDERED: CIPR-249 PO (10:28)
[2025-06-13 10:53] VITALS: BP 150/71
== END 2025-06-13 14:50 | disposition home or self-care (01) ==
LOC: M SDC 10:55 → M MS5PR 18:00 → M SDC 06-13 14:50
PROVIDERS: ATTEND Urology
DX: C61 Malignant neoplasm of prostate (principal); I12.0 Hypertensive chronic kidney disease with stage 5 chronic kidney disease or end stage renal disease; N18.6 End stage renal disease; D63.1 Anemia in chronic kidney disease; E78.00 Pure hypercholesterolemia, unspecified; H40.9 Unspecified glaucoma; Z99.2 Dependence on renal dialysis; Z79.899 Other long term (current) drug therapy; Z79.82 Long term (current) use of aspirin
CPT/HCPCS: 36415; 38571; 55866; 80048; 85027; 86850; 86900; 86901; 88305; 88309; J0131; J0665; J0690; J1100; J1171; J2250; J2405; J3010

== ENCOUNTER → 2025-07-15 | Outpatient (CLI) | payer MEDICARE, BC ==
[~2025-07-15] MED LIST changes: +CIPR-249 PO; +COLA100C5 PO; -LIDOCAINE 2% 100 MG/5 ML SDV (FOR ANES.) As Ordered ONE; +MED REC COMMENT; -ONDANSETRON 4MG 2ML VIAL As Ordered ONE; +PERCOCET PO; -ROCURONIUM BROMIDE 50MG/5ML VIAL As Ordered ONE; +VALS320T3 PO; -dexAMETHasone 4 MG/ML 1 ML VIAL As Ordered ONE
== END ==
LOC: M WUC 10:23
PROVIDERS: ATTEND Urology
DX: C61 Malignant neoplasm of prostate (principal)

== ENCOUNTER → 2025-10-08 | Outpatient (CLI) | payer MEDICARE, BC | LOC: M WUC 09:27 | PROVIDERS: ATTEND Urology | DX: C61 Malignant neoplasm of prostate (principal) ==